=== PATIENT | male | born 1955 | race Caucasian/White ===

== ENCOUNTER 2019-02-21 07:30 | Outpatient (REF) | payer MEDICAID, SELFPAY ==
[2019-02-22 19:49] LABS: Source: Passed Stone
== END 2019-02-21 07:50 ==
LOC: LBN 07:30
PROVIDERS: Physician Assistant; Visit Provider Physician Assistant
DX: R31.21 Asymptomatic microscopic hematuria (principal)
CPT/HCPCS: 82365

== ENCOUNTER 2019-02-26 15:57 | Emergency (ER) | payer MEDICAID, SELFPAY ==
[2019-02-26 16:05] VITALS: BP 138/92; PULSE 85; RESP 16; TEMP 36.5; O2SAT 98
--- NOTE | 2019-02-26 16:09 | ED.GENADUL_ITS ---
Discharge Plan Disposition Patient Disposition: HOME Condition: Fair Discharge Details Chief Complaint: Urinary Clinical Impression: Nephrolithiasis, Enlarged prostate Primary Care Provider: Isi,Local ED Provider: Talia Langston Home Meds and New Rx's Prescriptions: New tamsulosin [Flomax] 0.4 mg capsule 0.4 mg PO DAILY Qty: 7 RF: 0 Discharge Instructions Instructions: Kidney Stones (ED) Additional Instructions: Encourage hydration. Please use ibuprofen as needed for discomfort. Please take the Flomax as prescribed to help with passage of stone. Please strain your urine to collect the stone so this may be further tested. Please call urology tomorrow, number listed below, to schedule follow-up appointment. If you develop any fever/chills, increased pain, back pain or other new/worsening symptoms please seek care urgently once again. Referrals: Hua Gama MD [ [facility] STAFF PHYSICIAN] - Discharge Data Discharge Date/Time-TO BE ENTERED AT DEPARTURE: 02/26/19 19:23 Medical Decision Making Patient is 63-year-old male presenting today with chief complaint of dysuria, pelvic discomfort. He reports over the past 2 weeks he has experienced intermittent difficulty with urination. States that occasionally he can completely empty his bladder and feel like he urinates normally but often he is experiencing frequency, urgency and dysuria. Denies any burning sensation, feels that the pain is more internal. Denies any fevers or chills. He was seen by his primary care 6 days ago at which time he was diagnosed with a kidney stone based on hematuria in the urinalysis. Patient reports that he has had a kidney stone historically. Last stone was present for years ago. States that initially, he experienced some mild discomfort in his back but has not had any CVA tenderness recently. Denies any nausea or vomiting. No abdominal pain. Denies any pain with bowel movements. Is not noted any bright red blood with urination but again, patient did report blood on urinalysis completed by primary care. No new sexual partners. No penile discharge. No history of STDs. None exam, patient appears nontoxic. Abdomen is benign. He has normal rectal tone. Firm, enlarged prostate. Exam is uncomfortable for the patient but he did not experience any severe pain. Is not boggy to suggest infection. He was endorsing some scrotal swelling but not appreciate this on exam. No discomfort was elicited with exam. No penile discharge, no pain to palpation of the penis. I am concerned for possible stone, fine patient with prostate more likely. Considered mass that may be restricting urination. Plan for CT imaging and laboratory evaluation. Labs reviewed. No leukocytosis. Creatinine is normal. BUN is slightly elevated 22. Urinalysis significant for large amount of blood trace leukocyte esterase. FINDINGS: Lungs: Dependent atelectasis. Mediastinum: Hiatal hernia. Liver: Normal. No mass. Gallbladder and bile ducts: Normal. No calcified stones. No ductal dilation. Pancreas: Normal. No ductal dilation. Spleen: Calcified granulomas involving the spleen. Adrenals: Normal. No mass. Kidneys and ureters: Calcification in the right prominent extrarenal pelvis. No evidence for right hydronephrosis or hydroureter. Punctate calcification in the left kidney. Mild to moderate left hydronephrosis. No evidence for left hydroureter. Left renal atrophy. Stomach and bowel: Diverticulosis. No evidence for diverticulitis. Appendix: No evidence of appendicitis. Intraperitoneal space: Unremarkable. No free air. No significant fluid collection. Vasculature: Unremarkable. No abdominal aortic aneurysm. Lymph nodes: Unremarkable. No enlarged lymph nodes. Bladder: The urinary bladder is unremarkable. Reproductive: There is a 1.2 cm in the center of the prostate possibly within the prosthetic urethra. Seminal vesicles are symmetric. Bones/joints: Unremarkable. No acute fracture. Soft tissues: Umbilical hernia. Fat distention of the inguinal canals bilaterally. IMPRESSION: 1. 1.2 cm calcification located in the center of the prostate likely within or adjacent to the prosthetic urethra. Enlarged prostate. 2. Left renal atrophy with left hydronephrosis but no hydroureter. 3. Diverticulosis. 4. Hiatal hernia. Discussed case with Dr. Gama who advised that typically stone in this area is only seen in patients who have had prostate surgery. However, he did agree with the Flomax to encourage the passage of the stone naturally. Patient will be given collection kit. Patient will follow-up with Dr. Gama, Dr. Gama advised to patient will be seen in the next 1 to 2 weeks to discuss possible extraction if no spontaneous passage of stone has occurred. Encourage hydration. Patient has declined any analgesics while here. Reports minimal pain and was actually urinating. The movement of the stone may be what is causing the alterations in his urinary flow. He was given strict return precautions, particular signs of infection. All his questions and concerns were addressed and he is in agreement this plan. Patient was given his first dose of Flomax while here. HPI General Mode of arrival: ambulatory . Date/Time Provider Initiated Documentation: 02/26/19 16:09 . Limitations to Documentation: no limitations . Information obtained by: patient, family (Accompanied by friend) and RN notes reviewed . HPI Narrative: Patient is a 63-year-old male with past medical history significant for kidney stone, presenting today with chief complaint of difficulty urinating. Reports that for over the past week she has been having sniffles with urination. Reports that he was seen by his primary care last week for urinalysis significant for blood. Patient has a history of kidney stones, there is concern that his discomfort was from that. He reports that this does not feel like his previous stones have historically. He denied any flank pain or radiation of pain. Is not having any abdominal pain. States that more, is having pain and swelling in his testicles difficulty voiding. Denies any new sexual partners. Is denying any penile discharge. Denies any fevers or chills. Denies any change in bowel habits. Is not able to see any visual hematuria. Denies any trauma. States his pain does increase when he is straining to void. Has never had a colonoscopy or a prostate exam. Related Data Home Medications Medication Instructions Recorded Confirmed tamsulosin [Flomax] 0.4 mg PO DAILY #7 cap 02/26/19 Previous Rx's Medication Instructions Recorded tamsulosin [Flomax] 0.4 mg PO DAILY #7 cap 02/26/19 Allergies Allergy/AdvReac Type Severity Reaction Status Date / Time No Known Allergies Allergy Unverified 02/26/19 16:07 General Stated Complaint: Urinary ALLEN: 3 Review of Systems Constitutional Constitutional: Reports as per HPI, Denies chills, Denies fatigue, Denies fever(s) and Denies headache(s) ENT Ears, Nose, Mouth, and Throat: Denies headache(s) Cardiovascular Cardiovascular: Reports as per HPI, Denies chest pain and Denies dyspnea Respiratory Respiratory: Reports as per HPI, Denies cough and Denies dyspnea Gastrointestinal Gastrointestinal: Reports as per HPI Genitourinary Genitourinary: Denies hematuria, Reports difficulty urinating, Denies genital lesions, Reports dysuria, Denies flank pain, Denies penile discharge, Reports scrotal swelling, Reports testicular pain, Reports urinary frequency, Reports urinary hesitancy, Denies urinary incontinence and Reports urinary urgency Musculoskeletal Musculoskeletal: Reports as per HPI and Denies back pain Integumentary/Breasts Skin/Breast: Reports as per HPI and Denies rash Neurologic Neurologic: Reports as per HPI and Denies headache(s) Endocrine Endocrine: Denies fatigue [facility] Social History Smoking/Tobacco Use Status: Never Alcohol Intake: never Substance use type: does not use Exam Const General: cooperative, healthy appearing, comfortable, no acute distress and well developed Nutritional Appearance: average body habitus and well nourished Orientation: alert and awake HENMT Head: normal to inspection Mouth: moist mucous membranes Resp Effort & Inspection: normal respiratory effort, able to speak in complete sentences and no respiratory distress Auscultation: clear to auscultation bilaterally, no rales, no rhonchi and no wheezes Cardio Rate: regular rate Rhythm: regular rhythm Heart Sounds: S1 normal and S2 normal GI Inspection: normal to inspection and non-distended Palpation: soft, no hepatosplenomegaly, not firm, no guarding, not rigid and nontender Percussion: normal to percussion Auscultation: normal bowel sounds Rectal Exam: visual inspection normal, normal sphincter tone, heme negative stool, No hemorrhoids and prostate abnormal enlarged Male General Exam: Yes normal external exam Penis: normal penis Meatus: meatus normal Scrotum: scrotum normal, cremasteric reflex absent (patient retracted) bilater ally, no ecchymosis, not edematous, not erythematous, no hydroceles, no inguinal hernias, no masses and no scrotal swelling Testes: normal, testicular lie normal, no blue dot sign, not enlarged, no epidiymal masses, no epidiymal tenderness, no testicular mass, no testicular swelling and no testicular tenderness Back/Spine/Pelvis Back: no CVA tenderness Skin General skin exam: no rashes or lesions noted Trauma: no lacerations or abrasions Neuro General: alert and awake Cognition: normal cognition Speech: speech normal Gait: normal gait Psych Appearance: grossly normal and well kempt Mental Status: mental status grossly normal Speech and Movement: speech and movement normal Course Vital Signs Vital signs: Vital Signs Temperature 36.5 C 02/26/19 16:05 Pulse 85 02/26/19 16:05 Respiratory Rate 16 02/26/19 16:05 Blood Pressure 138/92 H 02/26/19 16:05 Pulse Oximetry 98 02/26/19 16:05 Temperature 36.5 C 02/26/19 16:05 Temperature Source Skin 02/26/19 16:05 Pulse 85 02/26/19 16:05 Respiratory Rate 16 02/26/19 16:05 Respiratory Effort Non-Labored 02/26/19 16:05 Blood Pressure 138/92 H 02/26/19 16:05 Blood Pressure Position Sitting 02/26/19 16:05 Pulse Oximetry 98 02/26/19 16:05 Oxygen Delivery Method Room Air 02/26/19 16:05 Oxygen Flow Rate 0 02/26/19 16:05 Pain Level 2 02/26/19 16:05
[2019-02-26 16:27] LABS: Bilirubin Negative (Negative); Blood Large (Negative); Clarity Cloudy (Clear); Glucose Negative (Negative); Ketones Negative (Negative); Leukocyte Esterase Trace (Negative); Nitrite Negative (Negative); Specific Gravity >= 1.030 (1.005-1.025); Urobilinogen 0.2 EU/dL (Up TO 0.2); pH 5.5 (5-8)
[2019-02-26 16:40] LABS: Bacteria Few HPF (Negative); C & S Indicated? Yes; Casts Negative LPF (Negative); Crystals Negative HPF (Negative); Epithelial Cells Few HPF (Negative); Mucus Heavy (Negative); Other Cells Few Transitional (Negative); RBC >50 (0-2)
--- NOTE | 2019-02-26 17:02 | DI.CT_ITS ---
EXAM: CT ABDOMEN PELVIS WO/W CLINICAL HISTORY: ENLARGED PROSTATE, DIFFICULTY URINATING TECHNIQUE: The exam was performed according to the usual protocol without and with contrast enhancem ent and administration of 100 cc's of Omnipaque 350. COMPARISON: No exams were available for comparison FINDINGS: The noncontrast examination shows a curvilinear calcification in the region of the right renal pelvis . It appears to lie however within the wall of a cyst which measures 2 cm. There is no right nephro lithiasis or ureterolithiasis. No right hydronephrosis is present. There is a 3 mm calcification in the lower pole of the left kidney. There is left renal atrophy. There is moderate dilatation of th e left renal pelvis. No ureterolithiasis or hydroureter is present. There is a 1.2 cm calcification within the center of the prostate gland. This may lie within the prostatic urethra. Incidental not e is made of bilateral fat containing small inguinal hernias. Incidental note is made of a hiatal he rnia. Following intravenous contrast administration, venous imaging of the abdomen and pelvis was performed . The superior aspects of both the liver and spleen were not included. The visualized liver is unre markable. The gallbladder is unremarkable. There is no biliary ductal dilatation. The pancreas, sp jyoti and adrenal glands are unremarkable. There are hypodensities seen in the renal cortices bilater ally. They are too small for further characterization but likely reflect small cysts. There is a 0. 8 cm hyperdense cortical lesion in the inferior pole of the left kidney. There is atherosclerosis of the abdominal aorta but no aneurysmal dilatation is present. No significant abdominal or pelvic jerome nopathy, ascites, or pneumoperitoneum is present. There is diverticulosis of the colon. There is no evidence of acute diverticulitis. The remainder of the bowel is unremarkable. No evidence of an ac marvin appendicitis is present. The prostate gland is enlarged. The urinary bladder is intact. Degene rative changes are present in the spine. No acute findings are seen in the visualized lung bases. Delayed images of the renal collecting system show no evidence of obstruction. The urinary bladder i s intact. No filling defects are present in the urinary bladder. IMPRESSION: 1. Mild left hydronephrosis but no hydroureter. Left nephrolithiasis. 2. 0.8 cm hyperdense lesion in the inferior pole of the left kidney. Considerations include a hemorr hagic cyst but solid mass cannot be excluded. Ultrasound should be considered for further evaluation . 3. Colonic diverticulosis but no evidence of acute diverticulitis. 4. 1.2 cm calcification in the center of the pelvis. This may be within or adjacent to the prostatic urethra.
[2019-02-26] MEDS: Normal Saline 1,000 ML 1000 ML IV (17:05)
[2019-02-26 17:17] LABS: Abs Immature Grans 0.02 k/cumm (0.0-0.09); Absolute Basophil Count 0.03 k/cumm (0.0-0.2); Absolute Eosinophil Count 0.11 k/cumm (0.0-0.7); Absolute Lymphocyte Count 1.94 k/cumm (1.2-3.4); Absolute Monocyte Count 0.52 k/cumm (0.11-0.7); Absolute Neutrophil Count 5.76 k/cumm (1.2-6.7); Basophils % 0.4; Eosinophils % 1.3; HCT 48.4 % (40.0-50.0); HGB 16.3 g/dL (13.5-17.5); Immature Grans % 0.2; Lymphocytes % 23.2; Mean Corp. HGB Concentration 33.7 g/dL (32.0-36.0); Mean Corpuscular Hemoglobin 29.6 pg (27.0-33.0); Mean Platelet Volume 10.5 fL (8.0-11.0); Monocytes % 6.2; Neutrophils % 68.7; Platelet Count 327 x1000/uL (130-400); RBC Distribution Width 13.5 % (11.8-14.1); White Blood Cell Count 8.38 k/cumm (4.4-10.8)
[2019-02-26 17:32] LABS: ALT 35 U/L (16-63); AST 18 U/L (15-37); Albumin 4.3 g/dL (3.4-5.0); Alkaline Phosphatase 103 U/L (46-116); Anion Gap 8.7 mmol/L (3-11); BUN 22 mg/dL (7-18); Bilirubin, Total 0.4 mg/dL (0.2-1.0); CO2 27.3 mmol/L (21.0-32.0); CREATININE 1.18 mg/dL (0.70-1.30); Calcium 9.4 mg/dL (8.5-10.1); Chloride 106 mmol/L (98-107); Glucose 101 mg/dL (70-100); Potassium 3.5 mmol/L (3.5-5.1); Sodium 142 mmol/L (136-145)
[2019-02-26] MEDS: Omnipaque 350 MG/ML 100 ML BTL IJ (18:06)
--- NOTE | 2019-02-26 18:33 | DI.VRAD_ITS ---
PROCEDURE INFORMATION: Exam: CT Abdomen And Pelvis Without And With Contrast Exam date and time: 02/26/2019 5:56 PM Clinical history: 63 years old, male; Other: Enlarged prostate diff urinating TECHNIQUE: Imaging protocol: Computed tomography of the abdomen and pelvis without and with intravenous contrast. Contrast material: OMNI 350; Contrast volume: 100 ml; Contrast route: IV; COMPARISON: No relevant prior studies available. FINDINGS: Lungs: Dependent atelectasis. Mediastinum: Hiatal hernia. Liver: Normal. No mass. Gallbladder and bile ducts: Normal. No calcified stones. No ductal dilation. Pancreas: Normal. No ductal dilation. Spleen: Calcified granulomas involving the spleen. Adrenals: Normal. No mass. Kidneys and ureters: Calcification in the right prominent extrarenal pelvis. No evidence for right hydronephrosis or hydroureter. Punctate calcification in the left kidney. Mild to moderate left hydronephrosis. No evidence for left hydroureter. Left renal atrophy. Stomach and bowel: Diverticulosis. No evidence for diverticulitis. Appendix: No evidence of appendicitis. Intraperitoneal space: Unremarkable. No free air. No significant fluid collection. Vasculature: Unremarkable. No abdominal aortic aneurysm. Lymph nodes: Unremarkable. No enlarged lymph nodes. Bladder: The urinary bladder is unremarkable. Reproductive: There is a 1.2 cm in the center of the prostate possibly within the prosthetic urethra. Seminal vesicles are symmetric. Bones/joints: Unremarkable. No acute fracture. Soft tissues: Umbilical hernia. Fat distention of the inguinal canals bilaterally. IMPRESSION: 1. 1.2 cm calcification located in the center of the prostate likely within or adjacent to the prosthetic urethra. Enlarged prostate. 2. Left renal atrophy with left hydronephrosis but no hydroureter. 3. Diverticulosis. 4. Hiatal hernia. Dictated and Authenticated by: Noris Steiner MD. Ordering:LING Melgar MD
[2019-02-26] MEDS: Tamsulosin 0.4 MG CAPCR PO (18:46)
[2019-02-26 18:48] VITALS: BP 161/110; PULSE 112; RESP 18; TEMP 36.8; O2SAT 98
--- NOTE | 2019-02-26 18:51 | NUR.NOTE ---
Nursing Note: Referral fax[facility] for follow up. Jayne Kennedy.
[2019-02-26 19:15] VITALS: BP 166/109; PULSE 104; RESP 16; TEMP 36.8; O2SAT 98
[2019-02-26 19:22] VITALS: BP 166/109; PULSE 104; RESP 16; TEMP 36.8; O2SAT 98
[2019-02-28 13:00] LABS: Chlamydia Result Negative; GC Result Negative; Specimen Description URINE
== END 2019-02-26 19:23 | disposition home or self-care (01) ==
PROVIDERS: Emergency Provider Physician Assistant
DX: N13.1 Hydronephrosis with ureteral stricture, not elsewhere classified (principal); N40.1 Benign prostatic hyperplasia with lower urinary tract symptoms
CPT/HCPCS: 36415; 80053; 87491; 87591; 96360; 96361; 99285; 74178; 81003; 81015; 85025; 87086; 99284; J3490

== ENCOUNTER 2019-03-05 15:26 | Outpatient (REF) | payer MEDICAID, SELFPAY ==
[2019-03-13 13:11] LABS: Source: Passed Stone
== END 2019-03-05 15:46 ==
LOC: LBN 15:26
PROVIDERS: Visit Provider Urology
DX: N20.0 Calculus of kidney (principal)
CPT/HCPCS: 82365